=== PATIENT | male | born 1980 | race Caucasian/White ===

== ENCOUNTER 2023-07-02 08:14 | Emergency (ER) | payer OTHER ==
[~2023-07-02] VITALS: Ht 177.8 cm; Wt 120.2 kg
[2023-07-02] MEDS ORDERED: SYNTHROID150 MCG PO (08:40)
[2023-07-02] MEDS ORDERED: ANTIVERT25 M2 PO (12:48)
== END 2023-07-02 13:20 | disposition home or self-care (01) ==
LOC: ER 08:14
PROVIDERS: General Practice
DX: R42 Dizziness and giddiness (principal); E03.9 Hypothyroidism, unspecified